=== PATIENT | female | born 1965 | race Caucasian/White ===

== ENCOUNTER 2018-12-09 21:41 | Emergency (ER) | payer OTHER ==
[2018-12-09 22:58] VITALS: BP 153/83
[2018-12-10] MEDS ORDERED: MECLIZINE HCL 25 MG TABLET PO ONE (00:05)
[2018-12-10] MEDS ORDERED: ONDANSETRON ODT 4 MG TAB (6 TAB/ER DISP) PO PRN (00:05)
--- NOTE | 2018-12-10 00:11 | ER Document Report ---
ED General - General Chief Complaint: Dizziness Stated Complaint: LIGHTHEADED,DIZZY,WEAK,NAUSEOUS Time Seen by Provider: 12/10/18 00:04 Primary Care Provider: CHAPITO DAVIS NP [Primary Care Provider] - Follow up as needed Notes: Patient is a 53-year-old female that comes to the emergency department for chief complaint of an episode prior to arrival where she suddenly felt like she was spinning, she felt nauseated, she felt like she could not get up. She states this did pass and gradually resolved, now she almost feels normal. She denies headache, focal numbness or weakness, vomiting, fever, chest pain, palpitations, shortness of breath. She states that she has been dealing with a plugged ear, she saw her primary care and was placed on nasal spray and this has not resolved the issue yet. She states she keeps plugging her nose and blowing to try to clear them. She is generally very healthy, she is a former smoker, she takes no daily medications. She denies any diagnosed medical problems. TRAVEL OUTSIDE OF THE [place] IN LAST 30 DAYS: No - Related Data Allergies/Adverse Reactions: No Known Allergies Allergy (Unverified 12/09/18 21:42) Past Medical History - General Information source: Patient - Social History Smoking Status: Never Smoker Frequency of alcohol use: None Drug Abuse: None Lives with: Family Family History: Reviewed & Not Pertinent Endocrine Medical History: Reports: Hx Hypothyroidism - Immunizations Immunizations up to date: Yes Hx Diphtheria, Pertussis, Tetanus Vaccination: Yes Review of Systems - Review of Systems Constitutional: See HPI EENT: See HPI Cardiovascular: No symptoms reported Respiratory: No symptoms reported Gastrointestinal: No symptoms reported Genitourinary: No symptoms reported Female Genitourinary: No symptoms reported Musculoskeletal: No symptoms reported Skin: No symptoms reported Hematologic/Lymphatic: No symptoms reported Neurological/Psychological: See HPI Physical Exam - Vital signs Vitals: Temp Pulse Resp BP Pulse Ox 97.8 F 73 18 153/83 H 100 12/09/18 22:54 12/09/18 22:54 12/09/18 22:54 12/09/18 22:54 12/09/18 22:54 - Notes Notes: GENERAL: Alert, interacts well. No acute distress. HEAD: Normocephalic, atraumatic. EYES: Pupils equal, round, and reactive to light. No nystagmus. Extraocular movements intact. ENT: Oral mucosa moist, tongue midline. Oropharynx unremarkable. Airway patent. Nares patent but with some mild congestion, no nasal septal hematoma. Right TM consistent with some fluid and dullness but no erythema, bulging, or purulent effusion. No perforation. Unremarkable otherwise. Left is unremarkable. NECK: Full range of motion. Supple. Trachea midline. LUNGS: Clear to auscultation bilaterally, no wheezes, rales, or rhonchi. No respiratory distress. HEART: Regular rate and rhythm. No murmur ABDOMEN: Soft, non-tender. Non-distended. Bowel sounds present in all 4 quadrants. GENITOURINARY: Deferred EXTREMITIES: Moves all 4 extremities spontaneously. No edema, normal radial and dorsalis pedis pulses bilaterally. No cyanosis. BACK: no cervical, thoracic, lumbar midline tenderness. No saddle anesthesia, normal distal neurovascular exam. NEUROLOGICAL: Alert and oriented x3. Normal speech. No ataxia. Normal [id number] exam. Cranial nerves II through XII grossly intact. PSYCH: Normal affect, normal mood. SKIN: Warm, dry, normal turgor. No rashes or lesions noted. Course - Re-evaluation Re-evalutation: Patient does have a right ear effusion. She has had been congested. She has no current symptoms other than her plugged ears, her spinning sensation and nausea have resolved. She has no neurological deficits. As result I do have a low suspicion of cerebellar stroke/hemorrhage. I did discuss potential work-up incl uding labs and MRI but this was deferred after discussion because patient is currently asymptomatic. Patient requesting treatment, follow-up, states she return if she worsens in any way. Patient provided with meclizine, Zofran, strict return precautions were discussed. Patient states satisfaction and agreement with plan. - Vital Signs Vital signs: Temp Pulse Resp BP Pulse Ox 97.8 F 73 18 153/83 H 100 12/09/18 22:54 12/09/18 22:54 12/09/18 22:54 12/09/18 22:54 12/09/18 22:54 Discharge - Discharge Clinical Impression: Vertigo, Dizziness Middle ear effusion Qualifiers: Laterality: right Qualified Code(s): H65.91 - Unspecified nonsuppurative otitis media, right ear Condition: Stable Disposition: HOME, SELF-CARE Additional Instructions: Your evaluation is consistent with an ear effusion (fluid in the middle ear), and most likely labyrinthitis. This is a temporary problem of the inner ear and usually will resolve. Take the meclizine as prescribed, take the Zofran if needed for nausea. Continue Flonase, consider other decongestant options including sudafed or neti pot. Follow-up with primary care. Return for any concerning or worsening symptoms, see additional details below. Labyrinthitis Labyrinthitis is a temporary disease of the inner ear. It's sometimes called vestibulitis. It often starts a few days after a cold or virus infection. Symptoms include vertigo (the spinning type of dizziness) or a sense of unsteadiness and nausea. The symptoms usually go away in a couple of days and can resolve without treatment. You should rest and keep your head still. The dizziness is worse if you move your head. Closing the eyes usually helps. Don't drive, work with dangerous machinery, or get up on ladders or scaffolds until after the dizziness resolves. Medicine such as meclizine (Antivert, Bonine) can reduce the dizziness and nausea. Tranquilizers (such as diazepam) can suppress your sense of balance, reducing the unpleasantness of the vertigo. Call or return if you develop ear pain, loss of hearing, fever, severe vomiting, or any other new symptom. Prescriptions: Meclizine HCl [Antivert 25 mg Tablet] 25 mg PO TID PRN #21 tablet PRN Reason: Ondansetron [Zofran Odt 4 mg Tablet] 1 - 2 tab PO Q4H PRN #15 tab.rapdis PRN Reason: For Nausea/Vomiting Forms: Return to Work, Treatment of Relative/Child Referrals: CHAPITO DAVIS NP [Primary Care Provider] - Follow up as needed
== END 2018-12-10 00:32 | disposition home or self-care (01) ==
LOC: ER 21:41
DX: H65.91 Unspecified nonsuppurative otitis media, right ear (principal); R42 Dizziness and giddiness; R53.1 Weakness; R11.0 Nausea
CPT/HCPCS: 99283